=== PATIENT | male | born 1995 | race Caucasian/White ===

== ENCOUNTER 2018-05-13 23:34 | Emergency (ER) | payer OTHER ==
[~2018-05-13] VITALS: Ht 182.9 cm; Wt 127.9 kg
[2018-05-13 23:37] VITALS: Ht 182.9 cm; Wt 127.9 kg
[2018-05-14 00:56] VITALS: BP 148/88
== END 2018-05-14 00:56 | disposition home or self-care (01) ==
LOC: ED 23:34
DX: J06.9 Acute upper respiratory infection, unspecified (principal); Z88.0 Allergy status to penicillin
CPT/HCPCS: J1100